=== PATIENT | male | born 1980 | race African-American/Black ===

== ENCOUNTER 2018-01-23 15:33 | Emergency (ER) | payer SELFPAY ==
[~2018-01-23] VITALS: Ht 157.5 cm; Wt 63.5 kg
[2018-01-23 15:36] VITALS: BP 122/68
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
--- NOTE | 2018-01-23 15:49 | NUR ---
PT TO X-RAY VIA WHEELCHAIR
--- NOTE | 2018-01-23 17:07 | NUR ---
Looked for patient in the ER lobby, called his name outside of lobby and no answer. Pt eloped from facility.
== END 2018-01-23 17:07 | disposition left against medical advice (07) ==
LOC: MED 15:33
DX: M25.572 Pain in left ankle and joints of left foot (principal); Z53.21 Procedure and treatment not carried out due to patient leaving prior to being seen by health care provider
CPT/HCPCS: 73590; 73610; 73630; 99281; 99284

== ENCOUNTER 2019-04-27 16:39 | Emergency (ER) | payer SELFPAY ==
[~2019-04-27] VITALS: Ht 160 cm; Wt 67.1 kg
[2019-04-27 16:51] VITALS: BP 121/73
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
[2019-04-27 18:05] VITALS: BP 122/74
== END 2019-04-27 18:06 | disposition home or self-care (01) ==
LOC: MED 16:39
DX: S63.502A Unspecified sprain of left wrist, initial encounter (principal); V28.4XXA Motorcycle driver injured in noncollision transport accident in traffic accident, initial encounter; Y93.55 Activity, bike riding; Y92.410 Unspecified street and highway as the place of occurrence of the external cause; Y99.8 Other external cause status
CPT/HCPCS: 73090; 99283; Q0092

== ENCOUNTER 2019-04-29 12:19 | Emergency (ER) | payer SELFPAY ==
[~2019-04-29] VITALS: Ht 160 cm; Wt 66.3 kg
[2019-04-29 12:25] VITALS: BP 123/108
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
[2019-04-29 13:20] VITALS: BP 143/91
--- NOTE | 2019-04-29 13:22 | NUR ---
Patient discharged with v/s stable. verbal after care instructions given and explained by Patient verbalized understanding. Carried with steady gait. All questions addressed prior to discharge. Advised to follow up with PMD.
== END 2019-04-29 13:10 | disposition home or self-care (01) ==
LOC: MED 12:19
DX: Z02.79 Encounter for issue of other medical certificate (principal)
CPT/HCPCS: 99281

== ENCOUNTER 2020-02-26 12:10 | Emergency (ER) | payer SELFPAY ==
[~2020-02-26] VITALS: Ht 154.9 cm; Wt 68.0 kg
[2020-02-26 12:14] VITALS: BP 118/84
[2020-02-26 13:20] VITALS: BP 118/84
== END 2020-02-26 13:19 | disposition home or self-care (01) ==
LOC: MED 12:10 → EEVIPCON 12:10 → MED 13:19
DX: R05 Cough (principal); R09.89 Other specified symptoms and signs involving the circulatory and respiratory systems; R06.02 Shortness of breath
CPT/HCPCS: 99283